=== PATIENT | female | born 1955 ===

== ENCOUNTER 2019-11-19 15:05 | Outpatient (REF) | payer SELFPAY ==
[2019-11-19 17:14] LABS: Chol HDL Ratio 3.59 mg/dL (0.0-4.40); Cholesterol 140 mg/dL (0-200); Glucose 199 mg/dL (65-115); HDL Cholesterol 39 mg/dL (60-100); LDL Cholesterol Calculated 85 mg/dL (50-129); LDL HDL Ratio 2.18 RATIO (0.00-3.22); Triglycerides 78 mg/dL (0-150)
[2019-11-19 18:45] LABS: Estmated Average Glucose 223; Hemoglobin A1C 9.4 % (4.0-6.0)
== END 2019-11-19 15:06 | disposition home or self-care (01) ==
LOC: LAB 15:05
PROVIDERS: Family Provider Family Medicine; PCP Family Medicine; Visit Provider Dermatology
DX: Z13.9 Encounter for screening, unspecified (principal)
CPT/HCPCS: 80061; 82947; 83036